=== PATIENT | female | born 1970 | race Two or more races ===

== ENCOUNTER 2017-10-13 07:15 | Observation (INO) | payer MEDICAID ==
[2017-10-08 11:13] LABS: BASOPHIL % 0.8 % (0-2); PLATELET COUNT 238 x10^3mcL (130-400)
[2017-10-08 11:30] LABS: ALBUMIN 4.1 g/dL (3.4-5.0); ALKALINE PHOSPHATASE 53 U/L (46-116); ALT/SGPT 27 U/L (14-59); AST/SGOT 16 U/L (15-37); CALCIUM 9.1 mg/dL (8.5-10.1); CARBON DIOXIDE 25.3 mmol/L (21-32); CHLORIDE SERUM 103 mmol/L (98-107); CREATININE SERUM 0.7 mg/dL (0.6-1.0); GFR1 > 60 mL/min; GLUCOSE SERUM 95 mg/dL (74-106); POTASSIUM SERUM 3.8 mmol/L (3.5-5.1); SODIUM SERUM 140 mmol/L (136-145); TOTAL PROTEIN, SERUM 7.8 g/dL (6.4-8.2)
[~2017-10-13] VITALS: Ht 170.2 cm; Wt 66.8 kg
[2017-10-13 07:46] VITALS: BP 116/64
[2017-10-13 17:27] LABS: PLATELET COUNT 229 x10^3mcL (130-400); RED CELL DISTRIBUTION WIDTH 13.4 % (11.5-14.5)
[2017-10-13 17:32] LABS: BASOPHIL % 0 % (0-2)
[2017-10-13 17:48] VITALS: BP 142/88
[2017-10-13 21:20] VITALS: BP 110/61
[2017-10-14 06:54] VITALS: BP 97/51
[2017-10-14 09:32] VITALS: BP 116/59
[2017-10-14] MEDS ORDERED: NORCO1 TA2 PO (11:38)
[2017-10-14 12:24] VITALS: BP 116/59
== END 2017-10-14 15:37 | disposition home or self-care (01) | DRG 363 ==
LOC: DS 07:15 → NM 09:00 → OR 12:00 → MU 16:28
PROVIDERS: Surgery
PROC: 07B50ZX Excision of Right Axillary Lymphatic, Open Approach, Diagnostic (ICD-10-PCS; principal; 2017-10-13 12:00)
PROC: 0HBV0ZZ Excision of Bilateral Breast, Open Approach (ICD-10-PCS; principal; 2017-10-13 12:00)
DX: D05.12 Intraductal carcinoma in situ of left breast (principal); D05.11 Intraductal carcinoma in situ of right breast; L80 Vitiligo; Z17.0 Estrogen receptor positive status [ER+]; Z83.3 Family history of diabetes mellitus; Z82.49 Family history of ischemic heart disease and other diseases of the circulatory system; Z68.22 Body mass index [BMI] 22.0-22.9, adult
CPT/HCPCS: 88329; 88344; 88361; G0378; J0690; J1170; J2001; J2405; J2704; J3010; J3490; J7120; Q9968